=== PATIENT | male | born 1955 | race American Indian/Alaskan Native ===

== ENCOUNTER 2016-09-19 13:51 | Emergency (ER) | payer SELFPAY ==
[2016-09-19 16:16] LABS: Alanine Aminotransferase 14 units/L (7-56); Albumin 3.8 g/dL (3.9-5); Alkaline Phosphatase 98 units/L (35-129); Anion Gap 20 mmol/L; Blood Urea Nitrogen 21 mg/dL (9-20); Carbon Dioxide 22 mmol/L (22-30); Chloride 99.3 mmol/L (98-107); Glucose 146 mg/dL (75-100); Lipase 19 units/L (13-60); Potassium 3.9 mmol/L (3.6-5.0); Sodium 137 mmol/L (137-145); Total Protein 7.6 g/dL (6.3-8.2)
[2016-09-19 16:23] LABS: Basophils % (Auto) 0.3 % (0.0-1.8); Hematocrit 41.1 % (35.5-45.6); Hemoglobin 13.6 gm/dl (11.8-15.2); Mean Corpuscular HGB Conc 33 % (32-34); Mean Corpuscular Hemoglobin 31 pg (28-32); Mean Corpuscular Volume 95 fl (84-94); Platelet Count 188 K/mm3 (140-440); Red Blood Count 4.34 M/mm3 (3.65-5.03); Red Cell Distribution Width 14.2 % (13.2-15.2); White Blood Count 4.2 K/mm3 (4.5-11.0)
[2016-09-19] MEDS ORDERED: APRESOLINE IV ONE (23:22)
[2016-09-19] MEDS ORDERED: BENTYL IM ONE (23:23)
[2016-09-19] MEDS ORDERED: TYLENOL PO ONE (23:23)
--- NOTE | 2016-09-19 23:24 | Emergency Department Report ---
ED Abdominal Pain HPI - General Chief Complaint: Abdominal Pain Stated Complaint: ABD PAIN Time Seen by Provider: 09/19/16 23:13 Source: patient, RN notes reviewed Mode of arrival: Ambulatory Limitations: No Limitations - History of Present Illness Initial Comments: This is a 60-year-old male. He is previously unknown to me. He does not have a primary care doctor. He denies a history of abdominal surgeries. Has a past medical history of hypertension, ran out of medications a few weeks ago. The patient presents to the ER complaining of abdominal pain. The abdominal pain is supraumbilical. It is achy. It does not radiate anywhere. No nausea, vomiting or diarrhea. No testicular pain. No irritative or obstructive urinary symptoms. Patient defecating normally. No fevers or chills. No chest pain, no shortness of breath. MD Complaint: abdominal pain -: Gradual Location: periumbilical Radiation: none Severity: mild Quality: aching Consistency: intermittent Improves With: rest Associated Symptoms: denies: nausea, vomiting, diarrhea, fever, chills, constipation, dysuria, hematemesis, hematochezia, melena, hematuria, anorexia, syncope - Related Data Previous Rx's Medication Instructions Recorded Last Taken Type Dicyclomine [Bentyl] 10 mg PO QID PRN #20 capsule 09/20/16 Unknown Rx amLODIPine [Norvasc] 5 mg PO DAILY #30 tab 09/20/16 Unknown Rx Allergies Allergy/AdvReac Type Severity Reaction Status Date / Time No Known Allergies Allergy Verified 09/19/16 15:11 ED Review of Systems ROS: Stated complaint: ABD PAIN Other details as noted in HPI Constitutional: denies: fever, malaise Eyes: denies: eye discharge ENT: denies: epistaxis Respiratory: denies: cough Cardiovascular: denies: chest pain Gastrointestinal: abdominal pain Genitourinary: denies: urgency, dysuria, testicular pain Musculoskeletal: denies: back pain Skin: denies: lesions Neurological: denies: headache, weakness ED Past Medical Hx - Past Medical History Hx Hypertension: Yes Additional medical history: states ran out of bp meds a month ago. - Social History Smoking Status: Never Smoker Substance Use Type: None - Medications Home Medications: Home Medications Medication Instructions Recorded Confirmed Last Taken Type Dicyclomine [Bentyl] 10 mg PO QID PRN #20 capsule 09/20/16 Unknown Rx amLODIPine [Norvasc] 5 mg PO DAILY #30 tab 09/20/16 Unknown Rx ED Physical Exam - General Limitations: No Limitations General appearance: alert, in no apparent distress - Head Head exam: Present: atraumatic, normocephalic - Eye Eye exam: Present: normal appearance, EOMI. Absent: nystagmus - ENT ENT exam: Present: normal exam, normal orophraynx, mucous membranes moist, normal external ear exam - Neck Neck exam: Present: normal inspection, full ROM. Absent: tenderness, meningismus - Respiratory Respiratory exam: Present: normal lung sounds bilaterally. Absent: respiratory distress, wheezes, rales, rhonchi, stridor, chest wall tenderness, accessory muscle use, decreased breath sounds, prolonged expiratory - Cardiovascular Cardiovascular Exam: Present: regular rate, normal rhythm, normal heart sounds. Absent: bradycardia, tachycardia, irregular rhythm, systolic murmur, diastolic murmur, rubs, gallop - GI/Abdominal GI/Abdominal exam: Present: soft, normal bowel sounds, other (there is no right lower quadrant tenderness, rebound or guarding. There is negative Oseguera sign. There is negative Rovsing sign.). Absent: distended, guarding, rebound, rigid - Rectal Rectal exam: Present: deferred - exam: Present: normal inspection. Absent: testicular tenderness External exam: Present: normal external exam, other (there is no testicular tenderness. There is normal cremasteric reflex bilaterally. There is normal testicular lie bilaterally) - Extremities Exam Extremities exam: Present: normal inspection, full ROM, normal capillary refill. Absent: tenderness, pedal edema, joint swelling, calf tenderness - Back Exam Back exam: Present: normal inspection, full ROM. Absent: tenderness, CVA tenderness (R), CVA tenderness (L), muscle spasm, paraspinal tenderness, vertebral tenderness - Neurological Exam Neurological exam: Present: alert, oriented X3, normal gait, other (Extraocular movements intact. Tongue midline. No facial droop. Facial sensation intact to light touch in the V1, V2, V3 distribution bilaterally. 5 and 5 strength in 4 extremities.. Sensation is intact to light touch in 4 extremities.). Absent : motor sensory deficit - Psychiatric Psychiatric exam: Present: normal affect, normal mood - Skin Skin exam: Present: warm, dry, intact, normal color. Absent: rash ED Course Vital Signs 09/19/16 09/19/16 09/20/16 15:12 21:43 00:13 Temperature 98.6 F Pulse Rate 71 74 84 Respiratory 16 16 Rate Blood Pressure 185/112 210/101 Blood Pressure 238/113 [Left] O2 Sat by Pulse 100 95 Oximetry 09/20/16 09/20/16 00:14 00:40 Temperature Pulse Rate 80 67 Respiratory 16 16 Rate Blood Pressure Blood Pressure 210/101 149/86 [Left] O2 Sat by Pulse 100 95 Oximetry - Reevaluation(s) Reevaluation #1: 09/20/16 01:03 differential dx: diverticulitis colitis renal colic constipation aaa incidental hypertension, non compliance with medication a/p: 60 y/o male with periumbilical non migratory abdominal pain. no rlq tenderness ct a/p negative for acute surgical disease bp improved after medication labs reviewed patient tolerating liquid feeds Patient is instructed in the importance of following up with outpatient primary care doctor for further maintenance of his hypertension/elevated blood pressure. Proteinuria is noted in the urine. The patient will be referred to outpatient primary care, and nephrology. Return precautions are reviewed. ED Medical Decision Making - Lab Data Result diagrams: 09/19/16 15:20 09/19/16 15:20 Vital Signs 09/19/16 09/19/16 09/20/16 15:12 21:43 00:13 Temperature 98.6 F Pulse Rate 71 74 84 Respiratory 16 16 Rate Blood Pressure 185/112 210/101 Blood Pressure 238/113 [Left] O2 Sat by Pulse 100 95 Oximetry 09/20/16 09/20/16 00:14 00:40 Temperature Pulse Rate 80 67 Respiratory 16 16 Rate Blood Pressure Blood Pressure 210/101 149/86 [Left] O2 Sat by Pulse 100 95 Oximetry Lab Results 09/19/16 09/19/16 09/20/16 Range/Units 15:20 15:20 00:14 WBC 4.2 L (4.5-11.0) K/mm3 RBC 4.34 (3.65-5.03) M/mm3 Hgb 13.6 (11.8-15.2) gm/dl Hct 41.1 (35.5-45.6) % MCV 95 H (84-94) fl MCH 31 (28-32) pg MCHC 33 (32-34) % RDW 14.2 (13.2-15.2) % Plt Count 188 (140-440) K/mm3 Lymph % (Auto) 39.7 H (13.4-35.0) % Daniels % (Auto) 11.8 H (0.0-7.3) % Eos % (Auto) 1.0 (0.0-4.3) % Baso % (Auto) 0.3 (0.0-1.8) % Lymph # 1.7 (1.2-5.4) K/mm3 Daniels # 0.5 (0.0-0.8) K/mm3 Eos # 0.0 (0.0-0.4) K/mm3 Baso # 0.0 (0.0-0.1) K/mm3 Seg Neutrophils % 47.2 (40.0-70.0) % Seg Neutrophils # 2.0 (1.8-7.7) K/mm3 Sodium 137 (137-145) mmol/L Potassium 3.9 (3.6-5.0) mmol/L Chloride 99.3 (98-107) mmol/L Carbon Dioxide 22 (22-30) mmol/L Anion Gap 20 mmol/L BUN 21 H (9-20) mg/dL Creatinine 1.2 (0.8-1.5) mg/dL Estimated GFR > 60 ml/min BUN/Creatinine Ratio 17.50 % Glucose 146 H (75-100) mg/dL Calcium 9.0 (8.4-10.2) mg/dL Total Bilirubin 0.60 (0.1-1.2) mg/dL AST 20 (5-40) units/L ALT 14 (7-56) units/L Alkaline Phosphatase 98 (35-129) units/L Total Protein 7.6 (6.3-8.2) g/dL Albumin 3.8 L (3.9-5) g/dL Albumin/Globulin Ratio 1.0 % Lipase 19 (13-60) units/L Urine Color Yellow (Yellow) Urine Turbidity Clear (Clear) Urine pH 5.0 (5.0-7.0) Ur Specific [place] 1.011 (1.003-1.030) Urine Protein 100 mg/dl (Negative) mg/dL Urine Glucose (UA) Neg (Negative) mg/dL Urine Ketones Neg (Negative) mg/dL Urine Blood Lg (Negative) Urine Nitrite Neg (Negative) Urine Bilirubin Neg (Negative) Urine Urobilinogen < 2.0 (<2.0) mg/dL Ur Leukocyte Esterase Neg (Negative) Urine WBC (Auto) < 1.0 (0.0-6.0) /HPF Urine RBC (Auto) 12.0 (0.0-6.0) /HPF - Radiology Data Radiology results: report reviewed, image reviewed Noncontrast CT scan of the abdomen and pelvis: Numerous diverticula. No evidence of appendicitis. No evidence of appendicitis. The appendix is not discretely visualized. The vasculature is documented as being normal. Critical care attestation.: If time is entered above; I have spent that time in minutes in the direct care of this critically ill patient, excluding procedure time. ED Disposition Clinical Impression: Abdominal pain, Elevated blood pressure reading, Abdominal pain Disposition: DISCHARGED TO HOME OR SELFCARE Is pt being admited?: No Does the pt Need Aspirin: No Condition: Stable Instructions: Hypertension (ED), Acute Abdominal Pain (ED) Additional Instructions: Take the pain medication as directed. Follow up with her primary care doctor within the next week. Blood pressure was markedly elevated in the emergency department. Urinalysis demonstrated protein in the urine. This suggests kidney damage, most likely secondary to hypertension. Alternatively, he may follow-up with [place] [facility] within the recommended timeframe. It is very important to take blood pressure medication. Long-term complications of hypertension/elevated blood pressure includes stroke, heart attack, disability, , paralysis, loss of quality of life. CT scan did demonstrate diverticulosis in the colon. This should be followed up by a shipping clerk/admin within the next 4-6 weeks. If you have not had a colonoscopy in the past 10 years, follow-up with a shipping clerk/admin for evaluation. Screening colonoscopies can help detect cancer. Return to the ER right away with new pain, worsened pain, migration of pain, fevers or chills, confusion, chest pain, nausea or vomiting, inability to tolerate liquid feeds. Dr. Torres is a local primary care doctor. Dr. Presley is a local shipping clerk/admin. Dr. Gonzalez is a local nephrology specialist. Referrals: LAWRENCE HUSSEIN MD [Primary Care Provider] - 3-5 Days MITESH TORRES MD [Staff Physician] - 3-5 Days AUREA GONZALEZ MD [Staff Physician] - 3-5 Days [facility] [Provider Group] - 3-5 Days NINO PRESLEY MD [Staff Physician] - 3-5 Days
--- NOTE | 2016-09-20 00:15 | Cat Scan Report ---
FINAL REPORT PROCEDURE: CT ABDOMEN PELVIS WO CON TECHNIQUE: Computerized axial tomography of the abdomen and pelvis was performed without intravenous contrast. This study is performed without intravascular contrast material and its sensitivity for abdominal and pelvic pathology, including neoplasms, inflammation, abscess, free fluid, thrombosis, arterial dissection and infarction, is reduced compared with a contrast enhanced study. HISTORY: abd pain COMPARISON: No prior studies are available for comparison. FINDINGS: Visualized lower thorax: No significant abnormality. Liver: Normal size and attenuation. Spleen: Normal size and attenuation. Gallbladder and biliary system: Normal. Pancreas: Normal. Adrenals: Normal. Kidneys: There are no kidney stones or ureteral stones. There is no hydronephrosis.. GI tract: There are numerous diverticula of the colon. There is no specific evidence of acute diverticulitis. There is no bowel obstruction. The appendix cannot be discretely visualized.. Lymph nodes and mesentery: Normal. Vasculature: Normal. Bladder: Normal. Reproductive organs: Normal. Peritoneum: There is no ascites, free air, abscess or adenopathy.. Musculoskeletal structures: No significant abnormality. There is advanced degenerative arthrosis of the left hip. Other: There is a small umbilical hernia containing fat only.. IMPRESSION: No acute intra-abdominal abnormality is seen. There are no kidney stones. There are scattered diverticula of the colon..
[2016-09-20 00:41] VITALS: BP 149/86
[2016-09-20 00:41] LABS: Bilirubin,Urine NEG (Negative); Blood,Urine LG (Negative); Ketones,Urine NEG (Negative); Leukocyte Esterase,Urine NEG (Negative); Nitrite,Urine NEG (Negative); Urobilinogen,Urine < 2.0 mg/dL (<2.0); WBC,Urine < 1.0 /HPF (0.0-6.0)
== END 2016-09-20 01:32 | disposition home or self-care (01) ==
LOC: ED 13:51
DX: R10.84 Generalized abdominal pain (principal); I10 Essential (primary) hypertension
CPT/HCPCS: 36415; 74176; 80053; 81001; 83690; 85025; 96372; 96374; 99284; J0360; J0500

== ENCOUNTER 2017-11-14 11:47 | Emergency (ER) | payer OTHER ==
[2017-11-14 12:06] VITALS: BP 172/99
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
--- NOTE | 2017-11-14 13:56 | XRay Report ---
LEFT HIP, 2 views: History: Left hip pain. Severe osteoarthritic changes are identified at the left hip. There is near-complete loss of joint space. Osteophytosis, articular surface sclerosis and subchondral cyst formation is identified. No obvious fracture or or osteonecrosis is identified. If further evaluation is needed, CT left hip without contrast or MRI left hip without contrast is recommended. IMPRESSION: Severe osteoarthritis of the left hip.
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
== END 2017-11-14 14:08 | disposition home or self-care (01) ==
LOC: ED 11:47
DX: M25.562 Pain in left knee (principal); R10.9 Unspecified abdominal pain; M25.552 Pain in left hip; I10 Essential (primary) hypertension; V49.49XA Driver injured in collision with other motor vehicles in traffic accident, initial encounter; Y93.89 Activity, other specified; Y92.89 Other specified places as the place of occurrence of the external cause; Y99.8 Other external cause status
CPT/HCPCS: 99283

== ENCOUNTER 2020-04-24 07:49 | Emergency (ER) | payer OTHER ==
[2020-04-24 17:45] LABS: Hematocrit 40.4 % (35.5-45.6); Hemoglobin 13.7 gm/dl (11.8-15.2); Mean Corpuscular HGB Conc 34 % (32-34); Mean Corpuscular Volume 97 fl (84-94); Platelet Count 238 K/mm3 (140-440); Red Blood Count 4.19 M/mm3 (3.65-5.03); Red Cell Distribution Width 14.2 % (13.2-15.2)
[2020-04-24 17:56] LABS: Alanine Aminotransferase 13 units/L (7-56); Albumin 4.2 g/dL (3.9-5); BUN/Creatinine Ratio 18; Blood Urea Nitrogen 25 mg/dL (9-20); Calcium 9.7 mg/dL (8.4-10.2); Hemolysis Index 2
[2020-04-24 20:35] VITALS: BP 105/72
== END 2020-04-26 03:44 | disposition left against medical advice (07) ==
LOC: ED 07:49
DX: R42 Dizziness and giddiness (principal); Z53.21 Procedure and treatment not carried out due to patient leaving prior to being seen by health care provider
CPT/HCPCS: 36415; 80053; 85027; 93005